=== PATIENT | female | born 1935 | race Asian ===

== ENCOUNTER 2017-09-05 20:20 | Inpatient (IN) | payer MEDICARE ==
[2017-09-05] MEDS ORDERED: NORMAL SALINE 1,000 ML IV ONE (20:53)
[2017-09-05 21:05] LABS: Hematocrit 26.8 % (37.0-47.0); Hemoglobin 8.5 gm/dL (12.5-16.0); Mean Cell Volume 92.7 fl (78-100); Mean Corpuscular Hemoglobin 29.4 pg (27-31); Mean Corpuscular Hgb Conc 31.7 g/dl (32-36); Mean Platelet Volume 8.5 fl (6.0-9.5); Neutrophil # 12.5 K/mm3 (1.3-6.0); Neutrophil % 80.1 % (42-75.0); Platelet Count 528 K/mm3 (150-450); Red Blood Count 2.89 M/mm3 (4.2-5.4); Red Cell Distribution Width 15.1 % (11.5-14.0); White Blood Count 15.7 K/mm3 (4.0-10.5)
--- NOTE | 2017-09-05 21:12 | ERNOTE ---
Medical Problem HPI - Narrative Date of Service: 09/05/17 - General Chief Complaint: General Assessment Time Seen by Provider: 09/05/17 20:44 Source: family Exam Limitations: language barrier - Immun/Allergies/Home Medications Immunizations: IMMUNIZATION HX Immunizations Up to Date Yes History of Influenza Vaccine No Hx Pneumococcal Vaccination No Allergies/Adverse Reactions: Allergies No Known Allergies Allergy (Unverified 09/05/17 20:38) Home Medications: HOME MEDICATIONS NK [No Home Medication] 04/01/14 [Last Taken Unknown] - History of Present History Narrative: Presenting with a is 81 year old that was brought in by her grand daughter after finding out today that she had become very thin, and believes that she has lost about 27 pounds. Currently the patient lives at the grand daughters boyfriend's home. The patient used to more active when she lived at a previous location, at which time she used to walk to the store to obtain cigarettes. Ms. Frederick has been having a poor appetite possible for several weeks to months, and mostly lies in bed. Reportedly she is able to walk but there is the concern that she may fall. The patient only speaks Georgian, and the grand daughter and the other occupants of the house do not speak Georgian. There is a concern that she may be depressed. There are no complaints of fevers, vomiting, diarrhea, pain or shortness of breath. The grand daughter has not contacted professor of social work as yet, and is fearful that she may not be able to take care of her any more. Date (Duration): 09/05/17 Timing: constant, getting worse Severity: severe Modifying Factors - (Improves): Present: other - none Modifying Factors - (Worsens): Present: other - none Review of Systems - Review of Systems Constitutional: Present: no symptoms reported EYE: Present: no symptoms reported ENT: Present: no symptoms reported Respiratory: Present: no symptoms reported Cardiology: Present: no symptoms reported Gastrointestinal/Abdominal: Present: drinking less, other - poor appetite Genitourinary: Present: no symptoms reported Musculoskeletal: Present: other - weakness Skin: Present: no symptoms reported Neurological: Present: no symptoms reported Endocrine: Present: no symptoms reported Hematologic/Lymphatic: Present: no symptoms reported Psych: Present: depressed - Patient's Past Medical History Patient History - Medical: GERD Patient History - Cardiac/Respiratory: COPD, Hypertension Patient History - Cancer: No Hx of Cancer Patient History - Surgical Procedures: - Family History Mother Family History - Medical: , No pertinent hx Father Family History - Medical: , No pertinent hx - Social History Living Situations: other Psych History: No pertinent hx Smoking Status: Current every day smoker Have you smoked in the past 12 months: Yes Do you dip or chew tobacco: No Alcohol Use: none Drug Use: none - Immunizations Immunizations Up to Date: Yes Hx Pneumococcal Vaccination: No History of Influenza Vaccine: No Physical Exam - Physical Exam Narrative: Gaunt and docile. General Appearance: Present: no apparent distress Head Exam: Present: normal inspection Eye Exam: Normal inspection: bilateral, PERRL: bilateral Neck: Present: normal inspection Respiratory: Present: no respiratory distress Cardiovascular/Chest: Present: regular rate, rhythm Gastrointestinal/Abdominal: Present: soft, tenderness - mild and general Back Exam: Present: normal inspection Extremity Exam: Present: normal inspection Neurological Exam: Present: alert Skin Exam: Present: normal color ED Progress - Results and Orders Patient's Lab Results:: I have reviewed the patient's lab results. - Vital Signs Patient's Vital Signs:: I have reviewed the patient's vital signs. Vital Signs: Vital Signs 09/05/17 20:27 Temperature 36.3 C L Pulse Rate 112 H Respiratory 14 Rate Blood Pressure 116/90 O2 Sat by Pulse 94 Oximetry - CT/Ultrasound CT/Ultrasound Narrative: 4.8 x 3.9 room enhancing necrotic mass versus infarct with right lower lobe There is an adjacent nodular area which are adjacent nodular areas of consolidation within the right lower lobe. There are branching areas of low attenuation within the right lower lobe suspicious for pulmonary emboli. Scattered groundglass left lower lobe airspace disease. A fusiform infrarenal abdominal aortic aneurysm which measures about 2.7 x 2.5 cm in maximal maximal axial dimension. The aneurysm terminates at the aortic bifurcation - Progress/Reassessment Chief Complaint: General Assessment Progress:: Unchanged - Progress Note-Subjective: 09/05/17 23:01 The patient was started on IV fluids and Rocephin for a UTI. 09/05/17 23:14 The case was discussed with Yesenia who will admit the patient. Started on Lovenox for possible PE. Departure Clinical Impression: Pulmonary embolism, UTI (urinary tract infection), Pulmonary mass Pneumonia Qualifiers: Laterality: right Lung location: lower lobe of lung - Departure Disposition: [facility] Condition: Fair
[2017-09-05 21:20] LABS: Albumin * 2.1 gm/dl (3.4-5.0); Anion Gap 11.8 mmol/L (6.8-13.8); BUN/Creatinine Ratio 15.7 (9.0-21.6); Bilirubin, Total 0.5 mg/dL (0.0-1.1); Ca. Corrected For Albumin 9.7 mg/dL (8.4-10.2); Calcium * 8.5 mg/dL (7.9-10.9); Potassium 3.8 mmol/L (3.4-4.6); Total Protein 7.7 gm/dL (6.2-8.2)
[2017-09-05 21:41] LABS: Urine Bilirubin Negative (NEGATIVE); Urine Blood 25 /ul (NEGATIVE); Urine Ketone Negative (NEGATIVE); Urine Protein 15 mg/dL (NEGATIVE); Urine Specific Gravity 1.025 SP.GR. (1.005-1.010); Urine Urobilinogen Normal (NORMAL)
[2017-09-05 21:52] LABS: Urine Nitrite Positive (NEGATIVE)
[2017-09-05 21:53] LABS: Urine Appearance Cloudy; Urine Bacteria 4+; Urine Color Yellow; Urine RBC 0-5 /hpf (0-5)
[2017-09-05] MEDS ORDERED: ENOXAPARIN SODIUM 30 MG/0.3 ML SYRG SC ONE (23:09)
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
[2017-09-06] MEDS ORDERED: AZITHROMYCIN 250 MG TABLET PO ONE (02:34)
[2017-09-06] MEDS: SENNOSIDES 8.6 MG TABLET PO SCH ×2 (03:24→22:00)
[2017-09-06] MEDS: POLYETHYLENE GLYCOL 3350 119 GM BTL PO SCH ×2 (03:26→09:05)
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
[2017-09-06 05:59] LABS: Mean Cell Volume 91.3 fl (78-100); Mean Corpuscular Hemoglobin 29.6 pg (27-31); Mean Corpuscular Hgb Conc 32.5 g/dl (32-36); Mean Platelet Volume 8.5 fl (6.0-9.5); Neutrophil # 10.3 K/mm3 (1.3-6.0); Neutrophil % 79.8 % (42-75.0); Platelet Count 479 K/mm3 (150-450); Red Blood Count 2.53 M/mm3 (4.2-5.4); Red Cell Distribution Width 14.9 % (11.5-14.0); White Blood Count 12.9 K/mm3 (4.0-10.5)
[2017-09-06 06:01] LABS: Hemoglobin 7.5 gm/dL (12.5-16.0)
[2017-09-06 06:02] LABS: Hematocrit 23.1 % (37.0-47.0)
[2017-09-06] MEDS: NORMAL SALINE 1,000 ML IV PRN ×3 (06:13→22:07)
[2017-09-06] MEDS ORDERED: ENOXAPARIN SODIUM 30 MG/0.3 ML SYRG SC SCH (11:00)
[2017-09-06 12:11] LABS: Magnesium 1.8 mg/dL (1.2-2.8); Phosphorus 3.7 mg/dL (2.2-4.2)
[2017-09-06] MEDS: cefTRIAXone SODIUM 1,000 MG in DEXTROSE 5 % IN WATER 50 ML IV SCH ×2 (22:10)
[2017-09-07] MEDS: AZITHROMYCIN 250 MG TABLET PO SCH (05:37)
[2017-09-07 05:59] LABS: Mean Cell Volume 92.6 fl (78-100); Mean Corpuscular Hemoglobin 29.4 pg (27-31); Mean Corpuscular Hgb Conc 31.8 g/dl (32-36); Mean Platelet Volume 8.6 fl (6.0-9.5); Neutrophil # 8.8 K/mm3 (1.3-6.0); Platelet Count 456 K/mm3 (150-450); Red Blood Count 2.31 M/mm3 (4.2-5.4); Red Cell Distribution Width 15.1 % (11.5-14.0); White Blood Count 11.2 K/mm3 (4.0-10.5)
[2017-09-07 06:01] LABS: Hemoglobin 6.8 gm/dL (12.5-16.0)
[2017-09-07 06:09] LABS: Hematocrit 21.4 % (37.0-47.0)
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
[2017-09-07 06:36] LABS: BUN/Creatinine Ratio 12.3 (9.0-21.6); Calcium * 7.7 mg/dL (7.9-10.9); Carbon Dioxide 25.3 mmol/L (24-32.6); Estimated Creat Clear 58.6; Potassium 3.3 mmol/L (3.4-4.6)
[2017-09-07 07:30] LABS: Iron 13 mcg/dL (35-120); Transferrin Sat. (% Sat.) 14 % (15-55)
[2017-09-07 07:56] LABS: Folate 3.1 ng/mL (>5.4)
[2017-09-07] MEDS: POLYETHYLENE GLYCOL 3350 119 GM BTL PO SCH (09:05)
--- NOTE | 2017-09-07 09:15 | PN ---
Progess Note - Interim Narrative: 09/07/17 09:12 I saw and examined this patient on 09/07/2017. I agree with the narrative and plan of HERMINIA Apple. We are not able to find out if she has had allergy with dye before. Will proceed with CTS of the chest w/o contrast for now and will discuss with daughter erich about CTS with dye. Depending on CTS results , if this is a malignant process and with her current state of health, we likely will proceed with hospice care. 09/07/17 17:41 ADDEMDUM: CTS w/o contrast-shows pulmonary mass- malignancy vs infection. i recommended to be conservative and comfort measures only when the time comes. Discussed with only living relative - daughter- she was wanting to know what could be done to know exactly what it is and maybe make her mother stronger. She also wants to have have her mother get BT. . Will start her on Megace and give her 2 units of PRBC. Will get consult with Dr. Figueredo.
[2017-09-07] MEDS: ENOXAPARIN SODIUM 30 MG/0.3 ML SYRG SC SCH (11:44)
[2017-09-07] MEDS: SENNOSIDES 8.6 MG TABLET PO SCH (21:31)
[2017-09-07] MEDS ORDERED: FUROSEMIDE 10 MG/ML VIAL IV SCH (22:00)
[2017-09-08] MEDS: cefTRIAXone SODIUM 1,000 MG in DEXTROSE 5 % IN WATER 50 ML IV SCH ×4 (00:50→21:34)
[2017-09-08] MEDS: AZITHROMYCIN 250 MG TABLET PO SCH (04:45)
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
[2017-09-08 06:17] LABS: Hemoglobin 10.6 gm/dL (12.5-16.0); Mean Cell Volume 85.8 fl (78-100); Mean Corpuscular Hemoglobin 28.4 pg (27-31); Mean Corpuscular Hgb Conc 33.1 g/dl (32-36); Mean Platelet Volume 9.1 fl (6.0-9.5); Neutrophil # 6.9 K/mm3 (1.3-6.0); Neutrophil % 73.2 % (42-75.0); Platelet Count 379 K/mm3 (150-450); Red Blood Count 3.73 M/mm3 (4.2-5.4); Red Cell Distribution Width 15.9 % (11.5-14.0); White Blood Count 9.4 K/mm3 (4.0-10.5)
[2017-09-08 06:24] LABS: Anion Gap 9.9 mmol/L (6.8-13.8); BUN/Creatinine Ratio 8.6 (9.0-21.6); Calcium * 8.1 mg/dL (7.9-10.9); Carbon Dioxide 27.1 mmol/L (24-32.6); Estimated Creat Clear 57.6
[2017-09-08] MEDS ORDERED: POTASSIUM CHLORIDE 40 MEQ/15 ML BTL PO ONE (06:36)
[2017-09-08] MEDS: POTASSIUM CHLORIDE 40 MEQ in NORMAL SALINE 1,000 ML IV SCH ×2 (07:01→18:01)
[2017-09-08] MEDS: POLYETHYLENE GLYCOL 3350 119 GM BTL PO SCH (09:54)
[2017-09-08] MEDS: MEGESTROL ACETATE 40 MG/ML BTL PO SCH (09:54)
[2017-09-08] MEDS: POTASSIUM CHLORIDE 10 MEQ TABLET.SA PO SCH ×2 (10:59→17:04)
[2017-09-08] MEDS: ENOXAPARIN SODIUM 30 MG/0.3 ML SYRG SC SCH (10:59)
--- NOTE | 2017-09-08 11:24 | PN ---
Progess Note - Interim Narrative: 09/08/17 11:23 I saw and examined this patient on 09/08/2017. I agree with the narrative and plan of HERMINIA Apple. Repeat CTS shows right dominant lower lobe mass, favoring malignancy, right upper lobe mass, b/l lower lobe pneumonia. Discuss case with Dr. Figueredo for possible bronchoscopy for bronchial washing and deep culture. Consider changing to Zosyn for anaerobic coverage but her WBC has normalized with Rocephin and Azithromycin.
[2017-09-08] MEDS: PANTOPRAZOLE SODIUM 40 MG in NORMAL SALINE 100 ML IV SCH (12:07)
[2017-09-08 17:54] LABS: Anion Gap 10.5 mmol/L (6.8-13.8); BUN/Creatinine Ratio 10.8 (9.0-21.6); Calcium * 7.7 mg/dL (7.9-10.9); Carbon Dioxide 22.7 mmol/L (24-32.6); Estimated Creat Clear 51.4; Potassium 5.2 mmol/L (3.4-4.6)
[2017-09-08] MEDS: ACETAMINOPHEN 325 MG TABLET PO PRN (21:34)
[2017-09-08] MEDS: SENNOSIDES 8.6 MG TABLET PO SCH (21:35)
[2017-09-09] MEDS: AZITHROMYCIN 250 MG TABLET PO SCH (04:44)
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
[2017-09-09 05:55] LABS: Hematocrit 33.7 % (37.0-47.0); Hemoglobin 11.1 gm/dL (12.5-16.0); Mean Corpuscular Hgb Conc 32.9 g/dl (32-36); Mean Platelet Volume 8.5 fl (6.0-9.5); Neutrophil # 4.9 K/mm3 (1.3-6.0); Neutrophil % 63.4 % (42-75.0); Platelet Count 410 K/mm3 (150-450); Red Blood Count 3.83 M/mm3 (4.2-5.4); Red Cell Distribution Width 16.8 % (11.5-14.0); White Blood Count 7.8 K/mm3 (4.0-10.5)
[2017-09-09 06:07] LABS: Anion Gap 9.7 mmol/L (6.8-13.8); BUN/Creatinine Ratio 7.7 (9.0-21.6); Calcium * 8.2 mg/dL (7.9-10.9); Carbon Dioxide 26.2 mmol/L (24-32.6); Estimated Creat Clear 51.4; Potassium 4.9 mmol/L (3.4-4.6)
[2017-09-09] MEDS ORDERED: POLYETHYLENE GLYCOL 3350 119 GM BTL PO PRN (06:42)
[2017-09-09] MEDS ORDERED: SENNOSIDES 8.6 MG TABLET PO PRN (06:43)
[2017-09-09] MEDS: MEGESTROL ACETATE 40 MG/ML BTL PO SCH (09:16)
[2017-09-09] MEDS: ENOXAPARIN SODIUM 30 MG/0.3 ML SYRG SC SCH (12:30)
[2017-09-09] MEDS: PANTOPRAZOLE SODIUM 40 MG in NORMAL SALINE 100 ML IV SCH (12:36)
[2017-09-09] MEDS: cefTRIAXone SODIUM 1,000 MG in DEXTROSE 5 % IN WATER 50 ML IV SCH ×2 (21:06)
[2017-09-10] MEDS: ACETAMINOPHEN 325 MG TABLET PO PRN (03:11)
[2017-09-10] MEDS: AZITHROMYCIN 250 MG TABLET PO SCH (04:16)
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
[2017-09-10 06:27] LABS: Anion Gap 10.4 mmol/L (6.8-13.8); BUN/Creatinine Ratio 16.4 (9.0-21.6); Calcium * 8.4 mg/dL (7.9-10.9); Estimated Creat Clear 49.9; Potassium 4.4 mmol/L (3.4-4.6)
[2017-09-10] MEDS: MEGESTROL ACETATE 40 MG/ML BTL PO SCH (08:52)
[2017-09-10] MEDS: PANTOPRAZOLE SODIUM 40 MG in NORMAL SALINE 100 ML IV SCH (12:13)
[2017-09-10] MEDS: ENOXAPARIN SODIUM 30 MG/0.3 ML SYRG SC SCH (12:13)
[2017-09-10] MEDS: cefTRIAXone SODIUM 1,000 MG in DEXTROSE 5 % IN WATER 50 ML IV SCH ×2 (21:04)
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
[2017-09-11 06:14] LABS: Hematocrit 35.6 % (37.0-47.0); Hemoglobin 11.5 gm/dL (12.5-16.0); Mean Cell Volume 87.9 fl (78-100); Mean Corpuscular Hemoglobin 28.4 pg (27-31); Mean Corpuscular Hgb Conc 32.3 g/dl (32-36); Mean Platelet Volume 9.4 fl (6.0-9.5); Neutrophil # 9.3 K/mm3 (1.3-6.0); Neutrophil % 72.8 % (42-75.0); Platelet Count 419 K/mm3 (150-450); Red Blood Count 4.05 M/mm3 (4.2-5.4); Red Cell Distribution Width 16.8 % (11.5-14.0); White Blood Count 12.8 K/mm3 (4.0-10.5)
[2017-09-11 06:27] LABS: Anion Gap 10.8 mmol/L (6.8-13.8); Calcium * 8.6 mg/dL (7.9-10.9); Carbon Dioxide 26.7 mmol/L (24-32.6); Potassium 4.5 mmol/L (3.4-4.6)
[2017-09-11 06:42] LABS: BUN/Creatinine Ratio 23.8 (9.0-21.6)
[2017-09-11] MEDS ORDERED: PANTOPRAZOLE SODIUM 40 MG in NORMAL SALINE 50 ML IV SCH (12:00)
[2017-09-11] MEDS: ENOXAPARIN SODIUM 30 MG/0.3 ML SYRG SC SCH (12:27)
[2017-09-11] MEDS: DEXTROSE 5%-0.5 NORMAL SALINE 1,000 ML IV PRN ×2 (12:41→22:26)
[2017-09-11] MEDS ORDERED: LIDOCAINE HCL/PF 200 MG/5 ML AMPUL IH ONE (13:34)
[2017-09-11 14:09] LABS: Urine Bilirubin Negative (NEGATIVE); Urine Blood Negative /ul (NEGATIVE); Urine Ketone Negative (NEGATIVE); Urine Nitrite Negative (NEGATIVE); Urine Protein Negative (NEGATIVE); Urine Specific Gravity 1.015 SP.GR. (1.005-1.010); Urine Urobilinogen Normal (NORMAL)
[2017-09-11 14:26] LABS: Urine Appearance Clear; Urine Color Yellow
[2017-09-11 14:27] LABS: Urine Bacteria TRACE; Urine RBC None Seen /hpf (0-5); Urine WBC None Seen /hpf (0-5)
[2017-09-11] MEDS ORDERED: RINGER'S SOLUTION,LACTATED 1,000 ML IV ONE (14:55)
[2017-09-11] MEDS ORDERED: LIDOCAINE HCL 20 ML UDC MM ONE ×2 (15:18)
[2017-09-11] MEDS: MEGESTROL ACETATE 40 MG/ML BTL PO SCH (15:54)
[2017-09-11] MEDS: cefTRIAXone SODIUM 1,000 MG in DEXTROSE 5 % IN WATER 50 ML IV SCH ×2 (22:26)
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
[2017-09-12 06:10] LABS: Hematocrit 31.8 % (37.0-47.0); Hemoglobin 10.5 gm/dL (12.5-16.0); Mean Cell Volume 88.3 fl (78-100); Mean Corpuscular Hemoglobin 29.2 pg (27-31); Mean Platelet Volume 8.7 fl (6.0-9.5); Neutrophil # 4.7 K/mm3 (1.3-6.0); Neutrophil % 63.9 % (42-75.0); Platelet Count 419 K/mm3 (150-450); Red Cell Distribution Width 17.2 % (11.5-14.0); White Blood Count 7.3 K/mm3 (4.0-10.5)
--- NOTE | 2017-09-12 07:29 | CONS ---
HPI - General Date of Service: 09/07/17 Source: patient, family Exam Limitations: clinical condition, other - language skills and [place] - History of Present Illness Initial Comments: The patient is an 81-year-old female brought to the hospital by her daughter with a history that the patient has been losing weight. Chest x-ray and CT scan reveal a large mass on the right side highly suspicious for carcinoma although infection cannot be ruled out. The patient herself cannot give useful history. Timing/Duration: unsure Allergies/Adverse Reactions: Allergies No Known Allergies Allergy (Verified 09/07/17 18:05) Home Medications: Home Medications Medication Instructions Recorded Last Taken NK [No Home Medication] 04/01/14 Unknown - Patient's Past Medical History Patient History - Medical: GERD Patient History - Cardiac/Respiratory: COPD, Hypertension Patient History - Cancer: No Hx of Cancer Patient History - Surgical Procedures: - Family History Mother Family History - Medical: , No pertinent hx Father Family History - Medical: , No pertinent hx - Social History Living Situations: other Psych History: No pertinent hx Smoking Status: Current every day smoker Have you smoked in the past 12 months: Yes Do you dip or chew tobacco: No Alcohol Use: none Drug Use: none - Immunizations Immunizations Up to Date: Yes Hx Pneumococcal Vaccination: No History of Influenza Vaccine: No Medications - Medications Current Medications: Current Medications Acetaminophen (Tylenol) 650 mg PO Q4H PRN PRN Reason: Fever Stop: 10/08/17 19:12 Last Admin: 09/10/17 03:11 Dose: 650 mg Enoxaparin Sodium (Lovenox) 30 mg SC Q24H MEGHAN Stop: 10/07/17 11:01 Last Admin: 09/11/17 12:27 Dose: 30 mg Ceftriaxone Sodium 1,000 mg/ (Dextrose/Water) 50 mls @ 100 mls/hr IV Q24H MEGHAN PRN Reason: Protocol Stop: 10/06/17 22:01 Last Admin: 09/11/17 22:26 Dose: 100 mls/hr Pantoprazole Sodium 40 mg/ (Sodium Chloride) 50 mls @ 200 mls/hr IV Q24H MEGHAN Stop: 10/08/17 12:01 Last Infusion: 09/11/17 12:59 Dose: Infused Dextrose/Sodium Chloride (Dextrose 5%-0.45%Ns) 1,000 mls @ 75 mls/hr IV .[id number] PRN PRN Reason: HYDRATION Stop: 10/11/17 11:37 Last Admin: 09/11/17 22:26 Dose: 75 mls/hr Megestrol Acetate (Megace Suspension) 400 mg PO DAILY MEGHAN Stop: 10/08/17 09:01 Last Admin: 09/11/17 15:54 Dose: 400 mg Review of Systems - Review of Systems Narrative: The patient states she is not in pain but further history cannot be obtained Physical Examination - Exam Vital Signs: Vital Signs - Last Taken Temp 37.3 C 09/07/17 07:40 Pulse 90 09/07/17 07:40 Resp 26 09/07/17 07:40 BP 113/51 09/07/17 07:40 Pulse Ox 95 09/07/17 07:40 O2 Oxygen Delivery Method Room Air Constitutional: Present: Alert, Other - Profoundly cachectic, Elderly ENT Exam: Present: hard of hearing Eye Exam: bilateral eye: normal inspection Neck: Present: supple Respiratory: Present: accessory muscle use, other - Diminished breath sounds on the right with rhonchi Cardiovascular/Chest: Present: normal peripheral pulses, regular rate, rhythm Extremity: Present: normal inspection Skin Exam: Present: pallor Neurologic: Present: butter grader II-XII nml as tested, no motor/sensory deficits Appearance: Present: disheveled Eye contact: Present: good eye contact - Results and Findings: Lab/Microbiology results last 24 hrs: Abnormal/Pending Laboratory Last 24 HRS 09/12/17 09/11/17 06:06 14:02 RBC 3.60 L Hgb 10.5 L Hct 31.8 L RDW 17.2 H Immature Gran % (Auto) 1.50 H Immature Gran # (Auto) 0.11 H Urine pH 8.0 H Culture 09/11/17 15:22 GERI Preparation - Final Bronchial Washings - Unknown 09/11/17 15:52 Gram Stain - Preliminary Bronchial Washings - Right 09/06/17 05:54 Blood Culture - Final Blood NO GROWTH 5 DAYS - Assessments/Findings (1) Pulmonary mass Diagnosis(s): 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 The social situation is unclear. The patient's daughter states "my house is a mass " I took my mother to live with my boyfriend. The daughter works 10 hours a day. I had a long discussion with the daughter about the situation. Bronchoscopy could help establish a diagnosis, although if this is a tumor it is unlikely that any treatment would be offered. The risks and possible complications of bronchoscopy were discussed. After an interactive discussion the daughter's questions were answered to her apparent satisfaction. The daughter wishes to consider what to do and I will have further conversations with her. Problem: Acute
--- NOTE | 2017-09-12 07:35 | OR ---
Operative Report - Dictated Report Narrative: OPERATIVE REPORT DATE OF OPERATION: 09/11/2017 PREOPERATIVE DIAGNOSIS: Right lung mass POSTOPERATIVE DIAGNOSIS: Possible neoplasm right lower lobe (pathology pending) OPERATION: Flexible fiberoptic proctoscopy with washings and brushing SURGEON: Aamir Figueredo MD ANESTHESIA: MAC Jason Martin CRNA INDICATIONS FOR PROCEDURE: The patient is an 81-year-old female with a large right lung mass and anemia and malnutrition FINDINGS: Narrowing and friability of the right lower lobe bronchus (pathology pending) NARRATIVE OF PROCEDURE: The patient was identified preoperatively and prior to the administration of anesthetic, a multidisciplinary timeout was observed. With the patient in the recumbent position and after the administration of intravenous sedation, the patient's left nostril was anesthetized with topical Xylocaine. The flexible fiberoptic bronchoscope was advanced through the left nasal passage which appeared grossly normal into a normal nasopharynx. The scope was advanced over the soft palate in a global view of the supraglottic larynx obtained. The supraglottic larynx appeared normal. The cords appeared normal, moved well, and opposed in the midline. The scope was advanced into the trachea which appeared normal with exception of mild tracheomalacia. The scope was advanced to the torri which appeared sharp. There were very thick pearlescent secretions present emanating from the right lung. These were carefully suctioned. The scope was advanced briefly down the left tracheobronchial tree, and the upper and lower lobe orifices and segmental divisions appeared normal out to the level of the examining scope. The scope was withdrawn to the torri and redirected down the right tracheobronchial tree. The right upper lobe orifice and segmental divisions appeared normal. The bronchus intermedius and right middle lobe bronchus appeared normal. There was marked narrowing and friability of the lower lobe orifice. The scope was wedged in the lower lobe orifice and 20 mL of saline instilled. This was then suctioned. A brush was then used to sample the orifice. The area appeared hemostatic. The right tracheobronchial tree was suctioned clean. The scope was then withdrawn slowly up the trachea and remaining secretions removed. The scope was then withdrawn from the patient and the procedure terminated. The patient tolerated the anesthetic and procedure well without complication. She was transferred back to the floor awake and in stable condition. Reviewed and electronically signed
[2017-09-12] MEDS: MEGESTROL ACETATE 40 MG/ML BTL PO SCH (08:23)
[2017-09-12] MEDS: ENOXAPARIN SODIUM 30 MG/0.3 ML SYRG SC SCH (10:22)
[2017-09-12] MEDS: DEXTROSE 5%-0.5 NORMAL SALINE 1,000 ML IV PRN (12:18)
[2017-09-13] MEDS: DEXTROSE 5%-0.5 NORMAL SALINE 1,000 ML IV PRN (01:44)
[2017-09-13] MEDS ORDERED: PANTOPRAZOLE SODIUM 40 MG TABLET.EC PO SCH (07:00)
[2017-09-13] MEDS: MEGESTROL ACETATE 40 MG/ML BTL PO SCH (09:54)
--- NOTE | 2017-09-13 10:18 | DS ---
(1) Pneumonia Problem: Acute Qualifiers: Laterality: bilateral Lung location: lower lobe of lung (2) Pulmonary mass Problem: Acute (3) Severe malnutrition Problem: Acute (4) UTI (urinary tract infection) Problem: Acute (5) Anemia Problem: Chronic Qualifiers: Anemia type: unspecified type Qualified Code(s): D64.9 - Anemia, unspecified Description of Stay: Ho Frederick is a 81-yr-old pt with a PMH of: COPD, GERD, HTN & Nicotine dependence who was admitted on 09/06/2017 for weight loss and groans of pain. . History from pt was limited due to Language barrier - she is English speaking and is also [facility]. Pt's daughter was at bedside and she provided most of the information. She stated that she has been living with her elderly mother and since July 2017, she has noticed that her appetite has significantly decreased. Yesterday while giving her a bath, she noticed that she appeared emaciated for the first time. She never realized how thin she was as the pt is always huddled under blankets. The night before her admission, the pt was onstantly groaning and so she brought her to the ED. Mrs. Frederick has not sought medical care since her PCP, Dr. Erick Chamberlain retired. She is unsure of the mother's last visit to the Doctor. She has not taken her medications for a long time and Jyoti admits that she never found time to seek another physician. Mrs. Frederick has never weighed more than 100 lbs for most of her life. At the ED, she was found to appear severely anorexic and malnourished with a mere weight of 72.53 lbs. Work-up involved abdominal CT which showed: rectal wall thickening-(unable to r/ o neoplasm),small lesions within the tim. kidneys and stool retention throughout. CT Abd. also captured: ground glass opacities on the LLL which could be concerning for Pneumonia, RLL mass and possible pulmonary embolism on the RLL. CT of the chest is pending. Laboratory studies showed WBC --> 15,700 with a LT shift, hgb--> 8.5gm/dL. UA showed 4 + bacteria, wbc 5-10 & positive for nitrite. 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 She got IV antibitoics for her pneumonia /E. Coli UTI and her WBC has normalized. Her bonchoscopy showed a tumor lesion but bronchial brush washing showed no malignant cells. Her culture inititally is saying yeast species. She also got 2 units of PRBC for a Hb of 6.8 . She has been walking with PT and is stable to be discharged but will make an appointment with Pulmonology for her pulmonary mass. Sexer was consulted and we had started her on Megace and Ensure. I did recommend that patient be referred to Hospice care especially if this malignancy which it looks like to be. Procedures Performed: see notes below List Procedures: bronchoscopy with washing Discharge Disposition: Home self care Disposition: Home self-care Condition: Poor Discharge Activity: Activity as tolerated Discharge Diet: General/regular food Discharge Level of Care:: Hospice - Home Additional Patient Instructions (free text): -Please make TCM appointment unless mcc discharge. Thank you! Melida @ [phone]. Ignacia kimball to [facility] with a PCP . may follow up with mi x [address] Del Castillo on 09-21-17 @ 1:30pm. . Refer to Pulmonoly in [facility] , records faxed and images pushed to [facility] they will call patient with appointment date and time after reviewing all. Prescriptions (Any new or edited meds): Acetaminophen [Acetaminophen ER] 650 mg PO QID PRN #30 tablet.er PRN Reason: Pain/Fever Albuterol Sulfate [Proair Hfa] 1 - 2 puff IH Q4H PRN #1 inhaler PRN Reason: Shortness Of Breath Fluconazole [Diflucan] 100 mg PO DAILY #14 tab Megestrol Acetate [Megace Suspension] 40 mg PO DAILY #1 btl Omeprazole 40 mg PO DAILY #30 capsule.dr [place]/Docusate Sodium [Senokot-S] 1 tab PO DAILY #30 tablet Complete Home Medications List: Complete Home Medication List: Acetaminophen [Acetaminophen ER] 650 mg PO QID PRN #30 tablet.er 09/13/17 Albuterol Sulfate [Proair Hfa] 1 - 2 puff IH Q4H PRN #1 inhaler 09/13/17 Fluconazole [Diflucan] 100 mg PO DAILY #14 tab 09/13/17 Megestrol Acetate [Megace Suspension] 40 mg PO DAILY #1 btl 09/13/17 Omeprazole 40 mg PO DAILY #30 capsule. 09/13/17 Sennosides/Docusate Sodium [Senokot-S] 1 tab PO DAILY #30 tablet 09/13/17
[2017-09-13] MEDS ORDERED: FLUCONAZOLE 200 MG TABLET PO SCH (11:30)
[2017-09-13] MEDS: ENOXAPARIN SODIUM 30 MG/0.3 ML SYRG SC SCH (11:35)
[2017-09-13] MEDS ORDERED: FLUCONAZOLE 200 MG TABLET PO ONE (16:00)
[2017-09-14 09:14] VITALS: BP 124/58
[2017-09-19 07:30] LABS: CMV Rapid Culture ISOLATED
== END 2017-09-13 20:00 | disposition home or self-care (01) | DRG 193 ==
LOC: ER 20:20 → MS 23:18
PROVIDERS: ADMIT Nurse Practitioner; ATTEND Internal Medicine
DX: J18.9 Pneumonia, unspecified organism (principal); E43 Unspecified severe protein-calorie malnutrition; N39.0 Urinary tract infection, site not specified; Z68.1 Body mass index [BMI] 19.9 or less, adult; R91.8 Other nonspecific abnormal finding of lung field; T73.0XXA Starvation, initial encounter; I10 Essential (primary) hypertension; K21.9 Gastro-esophageal reflux disease without esophagitis; J44.9 Chronic obstructive pulmonary disease, unspecified; F17.210 Nicotine dependence, cigarettes, uncomplicated
CPT/HCPCS: 36415; 71045; 71250; 71260; 74177; 80048; 80053; 81001; 82607; 82728; 82746; 83540; 83550; 83735; 84100; 85025; 86850; 86900; 87015; 87040; 87070; 87077; 87081; 87086; 87101; 87106; 87186; 87205; 87220; 87252; 87254; 87798; 88108; 88305; 88312; 93005; 94762; 96365; 96372; 97110; 97116; 97163; 99285; P9016